=== PATIENT | female | born 1980 | race Caucasian/White ===

== ENCOUNTER 2020-05-12 11:10 | Inpatient (IN) ==
[2020-05-12] MEDS ORDERED: Acetaminophen 325 MG TABLET PO ONE (11:18)
[2020-05-12 12:04] LABS: Alanine Aminotransferase 33 Units/L (7-52); Albumin 3.4 g/dL (3.5-5.7); Alkaline Phosphatase 124 Units/L (34-104); Aspartate Amino Transferase 55 Units/L (13-39); BUN/Creatinine Ratio 16 (6-26); Bilirubin,Direct 0.1 mg/dL (0.0-0.2); Bilirubin,Indirect 0.4 mg/dL (0.0-1.0); Bilirubin,Total 0.5 mg/dL (0.3-1.0); Blood Urea Nitrogen 12 mg/dL (6-20); Calcium 8.9 mg/dL (8.6-10.3); Carbon Dioxide 26 mEq/L (23-29); Chloride 103 mEq/L (98-107); Globulin 3.4 g/dL (2.4-3.5); Glucose 88 mg/dL (70-105); Osmolality,Calculated 283 (280-300); Potassium 4.5 mEq/L (3.5-5.1); Sodium 137 mEq/L (136-145); Total Protein 6.8 g/dL (6.4-8.9); Troponin I < 0.03 ng/mL (< 0.04); eGFR For African Americans > 60 (> 60); eGFR For Non-African Americans > 60 (> 60)
[2020-05-12 12:31] LABS: Basophils % 0.3 %; Eosinophils # 0.1 K/mcL (0.0-0.6); Eosinophils % 1.2 %; Hematocrit 32.8 % (35.3-44.9); Immature Granulocytes % 0.3 % (0-4); Lymphocytes # 0.5 K/mcL (0.6-4.6); Lymphocytes % 9.1 %; Mean Corpuscular Hemoglobin 28.8 pg (28.0-33.3); Mean Corpuscular Volume 90.1 fL (83.0-100.0); Mean Platelet Volume 10.8 fL (9.4-12.4); Monocytes # 0.1 K/mcL (0.0-1.3); Monocytes % 2.1 %; Platelet Count 220 K/mcL (140-400); Red Blood Count 3.64 M/mcL (3.82-4.97); Red Cell Distribution Width 15.7 % (11.5-14.5)
[2020-05-12 12:37] LABS: Hemoglobin 10.5 g/dL (11.5-15.4); Neutrophils # 5.1 K/mcL (1.6-8.9); White Blood Count 5.8 K/mcL (4.3-11.1)
[2020-05-12 13:21] LABS: Adenovirus Not Detected (Not Detect); Bordetella Pertussis Not Detected (Not Detect); Chlamydophila pneumoniae Not Detected (Not Detect); Coronavirus 229E Not Detected (Not Detect); Coronavirus HKU1 Not Detected (Not Detect); Coronavirus NL63 Not Detected (Not Detect); Coronavirus OC43 Not Detected (Not Detect); Human Metapneumovirus Not Detected (Not Detect); Human Rhinovirus/Enterovirus Not Detected (Not Detect); Influenza A Subtype 2009 H1 Not Detected (Not Detect); Influenza B Not Detected (Not Detect); Mycoplasma pneumoniae Not Detected (Not Detect); Parainfluenza Virus 1 Not Detected (Not Detect); Parainfluenza Virus 2 Not Detected (Not Detect); Parainfluenza Virus 3 Not Detected (Not Detect); Parainfluenza Virus 4 Not Detected (Not Detect); Respiratory Syncytial Virus Not Detected (Not Detect)
[2020-05-12 13:32] LABS: Bilirubin,Urine Negative (Negative); Blood,Urine Moderate (Negative); Clarity,Urine Clear (Clear); Color,Urine Light-Yellow (Yellow); Glucose,Urine (UA) Normal (Normal); Ketones,Urine Negative (Negative); Leukocyte Esterase,Urine Negative (Negative); Mucus,Urine Few per lpf (None-Few); Nitrite,Urine Negative (Negative); Protein,Urine Negative (Neg-Trace); RBC,Urine 30-50 per hpf (0-3); Squamous Epithelial Cell,Urine Few per hpf (None-Few); Urobilinogen,Urine Normal (Normal); WBC,Urine 0-3 per hpf (0-3)
[2020-05-12] MEDS ORDERED: Vancomycin 1,500 MG/265 ML IV.SOLN IVPB ONE (13:42)
[2020-05-12] MEDS ORDERED: 0.9 % Sodium Chloride 1,000 ML IVC ONE (13:43)
[2020-05-12] MEDS ORDERED: *HR* Promethazine 25 MG/ML VIAL IVP PRN (14:31)
[2020-05-12] MEDS ORDERED: Naloxone 0.4 MG/ML INJ IVP PRN (14:31)
[2020-05-12] MEDS ORDERED: Acetaminophen 325 MG TABLET PO PRN ×2 (14:41→14:43)
[2020-05-12] MEDS ORDERED: Perflutren Lipid Microsphere 1.3 ML in 0.9 % Sodium Chloride 8.7 ML IVP PRN (14:42)
[2020-05-12] MEDS ORDERED: Vancomycin 1,500 MG/265 ML IV.SOLN IVPB SCH (15:00)
[2020-05-12] MEDS: tiZANidine 4 MG TABLET PO SCH ×2 (17:34→19:58)
[2020-05-12] MEDS: Gabapentin 300 MG CAPSULE PO SCH ×2 (17:35→20:00)
[2020-05-12] MEDS: 0.9 % Sodium Chloride 1,000 ML IVC SCH (17:35)
[2020-05-12] MEDS: Methadone Oral Concentrate 50 MG/5 ML UDC PO SCH (19:58)
[2020-05-12] MEDS: Ibuprofen 600 MG TABLET PO SCH (19:58)
[2020-05-12] MEDS: traZODone 50 MG TABLET PO SCH (20:00)
[2020-05-12] MEDS: Lactobacillus 1 EACH CAP.SPRINK PO SCH (20:00)
[2020-05-13] MEDS: Vancomycin 1,250 MG/262.5 ML IV.SOLN IVPB SCH ×4 (01:45→23:00)
[2020-05-13] MEDS: 0.9 % Sodium Chloride 1,000 ML IVC SCH (01:59)
[2020-05-13 04:19] LABS: Basophils % 0.4 %; Eosinophils # 0.2 K/mcL (0.0-0.6); Hematocrit 28.5 % (35.3-44.9); Immature Granulocytes % 0.5 % (0-4); Lymphocytes # 1.7 K/mcL (0.6-4.6); Lymphocytes % 17.1 %; Mean Corpuscular HGB Conc 30.9 g/dL (31.6-35.5); Mean Corpuscular Hemoglobin 28.7 pg (28.0-33.3); Mean Corpuscular Volume 92.8 fL (83.0-100.0); Mean Platelet Volume 11.3 fL (9.4-12.4); Monocytes # 0.6 K/mcL (0.0-1.3); Monocytes % 5.7 %; Platelet Count 161 K/mcL (140-400); Red Blood Count 3.07 M/mcL (3.82-4.97); Red Cell Distribution Width 16.1 % (11.5-14.5); Segmented Neutrophils % 74.3 %
[2020-05-13 04:22] LABS: Neutrophils # 7.4 K/mcL (1.6-8.9); White Blood Count 9.9 K/mcL (4.3-11.1)
[2020-05-13 04:23] LABS: Hemoglobin 8.8 g/dL (11.5-15.4)
[2020-05-13 04:36] LABS: BUN/Creatinine Ratio 22 (6-26); Blood Urea Nitrogen 18 mg/dL (6-20); Carbon Dioxide 24 mEq/L (23-29); Chloride 109 mEq/L (98-107); Glucose 112 mg/dL (70-105); Osmolality,Calculated 287 (280-300); Potassium 4.2 mEq/L (3.5-5.1); Sodium 137 mEq/L (136-145); eGFR For African Americans > 60 (> 60); eGFR For Non-African Americans > 60 (> 60)
[2020-05-13] MEDS: Methadone Oral Concentrate 50 MG/5 ML UDC PO SCH ×2 (08:01→20:04)
[2020-05-13] MEDS: Lactobacillus 1 EACH CAP.SPRINK PO SCH ×2 (08:02→20:03)
[2020-05-13] MEDS: Gabapentin 300 MG CAPSULE PO SCH ×3 (08:02→20:04)
[2020-05-13] MEDS: tiZANidine 4 MG TABLET PO SCH ×3 (08:02→20:04)
[2020-05-13 09:27] LABS: Albumin/Globulin Ratio 1.2 (1.1-2.2); Bilirubin,Direct 0.2 mg/dL (0.0-0.2); Bilirubin,Indirect 0.3 mg/dL (0.0-1.0); Bilirubin,Total 0.5 mg/dL (0.3-1.0); Globulin 2.6 g/dL (2.4-3.5); Total Protein 5.6 g/dL (6.4-8.9)
[2020-05-13 09:39] LABS: Fibrinogen 261 mg/dL (169-393)
[2020-05-13 09:45] LABS: D-Dimer 1193 ng/mLFEU (0-500)
[2020-05-13 10:24] LABS: Enterococcus by PCR Not Detected (Not Detect); mecA Methicillin-Resist Gene Not Detected (Not Detect)
[2020-05-13 10:25] LABS: Acinetobacter baumannii by PCR Not Detected (Not Detect); Candida albicans by PCR Not Detected (Not Detect); Candida glabrata by PCR Not Detected (Not Detect); Candida krusei by PCR Not Detected (Not Detect); Candida parapsilosis by PCR Not Detected (Not Detect); Candida tropicalis by PCR Not Detected (Not Detect); Enterobacter cloacae Cmplx PCR Not Detected (Not Detect); Enterobacteriaceae by PCR Not Detected (Not Detect); Escherichia coli by PCR Not Detected (Not Detect); Klebsiella oxytoca by PCR Not Detected (Not Detect); Klebsiella pneumoniae by PCR Not Detected (Not Detect); Proteus by PCR Not Detected (Not Detect); Pseudomonas aeruginosa by PCR Not Detected (Not Detect); Serratia marcescens by PCR Not Detected (Not Detect); Staphylococcus aureus by PCR DETECTED (Not Detect); Streptococcus agalactiae(B)PCR Not Detected (Not Detect); Streptococcus by PCR Not Detected (Not Detect); Streptococcus pneumoniae PCR Not Detected (Not Detect); Streptococcus pyogenes (A) PCR Not Detected (Not Detect)
[2020-05-13] MEDS: Ibuprofen 600 MG TABLET PO SCH (20:04)
[2020-05-13] MEDS: traZODone 50 MG TABLET PO SCH (20:04)
[2020-05-14 06:00] LABS: Basophils # 0.1 K/mcL (0.0-0.2); Basophils % 0.8 %; Eosinophils # 0.2 K/mcL (0.0-0.6); Eosinophils % 2.4 %; Hematocrit 30.9 % (35.3-44.9); Hemoglobin 9.4 g/dL (11.5-15.4); Immature Granulocytes % 0.5 % (0-4); Lymphocytes # 1.6 K/mcL (0.6-4.6); Lymphocytes % 25.3 %; Mean Corpuscular HGB Conc 30.4 g/dL (31.6-35.5); Mean Corpuscular Hemoglobin 28.4 pg (28.0-33.3); Mean Corpuscular Volume 93.4 fL (83.0-100.0); Mean Platelet Volume 11.1 fL (9.4-12.4); Monocytes # 0.4 K/mcL (0.0-1.3); Monocytes % 6.6 %; Platelet Count 135 K/mcL (140-400); Red Blood Count 3.31 M/mcL (3.82-4.97); Red Cell Distribution Width 15.6 % (11.5-14.5); Segmented Neutrophils % 64.4 %; White Blood Count 6.2 K/mcL (4.3-11.1)
[2020-05-14 06:18] LABS: BUN/Creatinine Ratio 19 (6-26); Blood Urea Nitrogen 13 mg/dL (6-20); Calcium 8.7 mg/dL (8.6-10.3); Carbon Dioxide 22 mEq/L (23-29); Chloride 109 mEq/L (98-107); Glucose 86 mg/dL (70-105); Osmolality,Calculated 287 (280-300); Potassium 4.1 mEq/L (3.5-5.1); Sodium 139 mEq/L (136-145); eGFR For African Americans > 60 (> 60); eGFR For Non-African Americans > 60 (> 60)
[2020-05-14] MEDS: Vancomycin 1,250 MG/262.5 ML IV.SOLN IVPB SCH (06:25)
[2020-05-14] MEDS: tiZANidine 4 MG TABLET PO SCH ×3 (08:25→20:35)
[2020-05-14] MEDS ORDERED: *HR* Heparin 5,000 UNIT/ML VIAL ONE (08:25)
[2020-05-14] MEDS: *HR* Heparin 5,000 UNIT/ML VIAL SQ SCH ×2 (08:25→20:35)
[2020-05-14] MEDS: Lactobacillus 1 EACH CAP.SPRINK PO SCH ×2 (08:26→20:34)
[2020-05-14] MEDS: Methadone Oral Concentrate 50 MG/5 ML UDC PO SCH ×2 (08:26→20:35)
[2020-05-14] MEDS: Gabapentin 300 MG CAPSULE PO SCH ×3 (08:26→20:35)
[2020-05-14] MEDS: Piperacillin/Tazobactam 3.375 GM in 0.9 % Sodium Chloride Mini Bag 100 ML IVPB SCH (16:07)
[2020-05-14] MEDS: Ibuprofen 600 MG TABLET PO SCH (20:34)
[2020-05-14] MEDS: traZODone 50 MG TABLET PO SCH (20:34)
[2020-05-15] MEDS: Piperacillin/Tazobactam 3.375 GM in 0.9 % Sodium Chloride Mini Bag 100 ML IVPB SCH ×3 (01:22→16:51)
[2020-05-15] MEDS: *HR* Heparin 5,000 UNIT/ML VIAL SQ SCH ×2 (05:30→16:53)
[2020-05-15] MEDS: Lactobacillus 1 EACH CAP.SPRINK PO SCH ×2 (08:43→20:13)
[2020-05-15] MEDS: Methadone Oral Concentrate 50 MG/5 ML UDC PO SCH ×2 (08:43→20:13)
[2020-05-15] MEDS: tiZANidine 4 MG TABLET PO SCH ×3 (08:47→20:13)
[2020-05-15] MEDS: Gabapentin 300 MG CAPSULE PO SCH ×3 (08:48→20:13)
[2020-05-15 09:18] LABS: Basophils % 0.6 %; Eosinophils # 0.2 K/mcL (0.0-0.6); Hematocrit 28.7 % (35.3-44.9); Hemoglobin 8.7 g/dL (11.5-15.4); Immature Granulocytes % 0.6 % (0-4); Lymphocytes # 1.4 K/mcL (0.6-4.6); Lymphocytes % 28.1 %; Mean Corpuscular HGB Conc 30.3 g/dL (31.6-35.5); Mean Corpuscular Volume 92.3 fL (83.0-100.0); Mean Platelet Volume 11.4 fL (9.4-12.4); Monocytes # 0.3 K/mcL (0.0-1.3); Monocytes % 6.2 %; Neutrophils # 3.1 K/mcL (1.6-8.9); Platelet Count 141 K/mcL (140-400); Red Blood Count 3.11 M/mcL (3.82-4.97); Red Cell Distribution Width 15.6 % (11.5-14.5); Segmented Neutrophils % 61.5 %
[2020-05-15 09:26] LABS: BUN/Creatinine Ratio 15 (6-26); Blood Urea Nitrogen 13 mg/dL (6-20); Calcium 8.6 mg/dL (8.6-10.3); Carbon Dioxide 27 mEq/L (23-29); Chloride 105 mEq/L (98-107); Glucose 127 mg/dL (70-105); Osmolality,Calculated 286 (280-300); Potassium 4.2 mEq/L (3.5-5.1); Sodium 137 mEq/L (136-145); eGFR For African Americans > 60 (> 60); eGFR For Non-African Americans > 60 (> 60)
[2020-05-15] MEDS: traZODone 50 MG TABLET PO SCH (20:13)
[2020-05-15] MEDS: ceFAZolin 2,000 MG in 0.9 % Sodium Chloride 100 ML IVPB SCH (23:55)
[2020-05-16 03:20] LABS: Basophils % 0.7 %; Eosinophils # 0.2 K/mcL (0.0-0.6); Eosinophils % 2.9 %; Hematocrit 32.8 % (35.3-44.9); Immature Granulocytes % 0.9 % (0-4); Lymphocytes # 1.9 K/mcL (0.6-4.6); Mean Corpuscular HGB Conc 30.5 g/dL (31.6-35.5); Mean Corpuscular Hemoglobin 27.9 pg (28.0-33.3); Mean Corpuscular Volume 91.6 fL (83.0-100.0); Mean Platelet Volume 11.7 fL (9.4-12.4); Monocytes # 0.4 K/mcL (0.0-1.3); Neutrophils # 3.3 K/mcL (1.6-8.9); Platelet Count 171 K/mcL (140-400); Red Blood Count 3.58 M/mcL (3.82-4.97); Red Cell Distribution Width 15.3 % (11.5-14.5); Segmented Neutrophils % 56.5 %; White Blood Count 5.9 K/mcL (4.3-11.1)
[2020-05-16 03:35] LABS: BUN/Creatinine Ratio 15 (6-26); Blood Urea Nitrogen 15 mg/dL (6-20); Carbon Dioxide 28 mEq/L (23-29); Chloride 104 mEq/L (98-107); Glucose 86 mg/dL (70-105); Osmolality,Calculated 284 (280-300); Potassium 4.5 mEq/L (3.5-5.1); Sodium 137 mEq/L (136-145); eGFR For African Americans > 60 (> 60); eGFR For Non-African Americans > 60 (> 60)
[2020-05-16] MEDS: *HR* Heparin 5,000 UNIT/ML VIAL SQ SCH ×2 (05:21→16:42)
[2020-05-16] MEDS: Gabapentin 300 MG CAPSULE PO SCH ×3 (09:04→19:50)
[2020-05-16] MEDS: Lactobacillus 1 EACH CAP.SPRINK PO SCH ×2 (09:04→19:50)
[2020-05-16] MEDS: tiZANidine 4 MG TABLET PO SCH ×3 (09:04→19:50)
[2020-05-16] MEDS: Methadone Oral Concentrate 50 MG/5 ML UDC PO SCH ×2 (09:05→19:49)
[2020-05-16] MEDS: ceFAZolin 2,000 MG in 0.9 % Sodium Chloride 100 ML IVPB SCH ×2 (12:29→19:56)
[2020-05-16] MEDS: traZODone 50 MG TABLET PO SCH (19:51)
[2020-05-17 02:01] LABS: Basophils # 0.1 K/mcL (0.0-0.2); Basophils % 0.9 %; Eosinophils # 0.2 K/mcL (0.0-0.6); Eosinophils % 2.6 %; Hematocrit 33.9 % (35.3-44.9); Hemoglobin 10.7 g/dL (11.5-15.4); Lymphocytes # 1.7 K/mcL (0.6-4.6); Lymphocytes % 29.3 %; Mean Corpuscular HGB Conc 31.6 g/dL (31.6-35.5); Mean Corpuscular Hemoglobin 28.8 pg (28.0-33.3); Mean Corpuscular Volume 91.4 fL (83.0-100.0); Mean Platelet Volume 11.4 fL (9.4-12.4); Monocytes # 0.4 K/mcL (0.0-1.3); Monocytes % 6.3 %; Neutrophils # 3.5 K/mcL (1.6-8.9); Platelet Count 173 K/mcL (140-400); Red Blood Count 3.71 M/mcL (3.82-4.97); Red Cell Distribution Width 15.4 % (11.5-14.5); Segmented Neutrophils % 59.9 %; White Blood Count 5.8 K/mcL (4.3-11.1)
[2020-05-17 02:21] LABS: BUN/Creatinine Ratio 16 (6-26); Blood Urea Nitrogen 15 mg/dL (6-20); Calcium 9.2 mg/dL (8.6-10.3); Carbon Dioxide 27 mEq/L (23-29); Chloride 102 mEq/L (98-107); Glucose 91 mg/dL (70-105); Osmolality,Calculated 282 (280-300); Potassium 4.1 mEq/L (3.5-5.1); Sodium 136 mEq/L (136-145); eGFR For African Americans > 60 (> 60); eGFR For Non-African Americans > 60 (> 60)
[2020-05-17] MEDS: ceFAZolin 2,000 MG in 0.9 % Sodium Chloride 100 ML IVPB SCH ×3 (05:43→21:03)
[2020-05-17] MEDS: *HR* Enoxaparin 40 MG/0.4 ML SYRINGE SQ SCH (05:44)
[2020-05-17] MEDS: Gabapentin 300 MG CAPSULE PO SCH ×3 (09:55→21:02)
[2020-05-17] MEDS: tiZANidine 4 MG TABLET PO SCH ×3 (09:55→21:02)
[2020-05-17] MEDS: Lactobacillus 1 EACH CAP.SPRINK PO SCH ×2 (09:55→21:01)
[2020-05-17] MEDS: Methadone Oral Concentrate 50 MG/5 ML UDC PO SCH ×2 (09:56→21:01)
[2020-05-17] MEDS: traZODone 50 MG TABLET PO SCH (21:01)
[2020-05-18 01:19] LABS: Basophils % 0.6 %; Eosinophils # 0.3 K/mcL (0.0-0.6); Eosinophils % 3.6 %; Hematocrit 32.6 % (35.3-44.9); Hemoglobin 10.2 g/dL (11.5-15.4); Lymphocytes # 1.9 K/mcL (0.6-4.6); Lymphocytes % 26.8 %; Mean Corpuscular HGB Conc 31.3 g/dL (31.6-35.5); Mean Corpuscular Hemoglobin 28.1 pg (28.0-33.3); Mean Corpuscular Volume 89.8 fL (83.0-100.0); Mean Platelet Volume 11.5 fL (9.4-12.4); Monocytes # 0.5 K/mcL (0.0-1.3); Monocytes % 6.5 %; Neutrophils # 4.3 K/mcL (1.6-8.9); Platelet Count 167 K/mcL (140-400); Red Blood Count 3.63 M/mcL (3.82-4.97); Red Cell Distribution Width 15.2 % (11.5-14.5); Segmented Neutrophils % 61.5 %; White Blood Count 6.9 K/mcL (4.3-11.1)
[2020-05-18 01:32] LABS: Magnesium 1.8 mg/dL (1.6-2.6)
[2020-05-18 01:35] LABS: BUN/Creatinine Ratio 16 (6-26); Blood Urea Nitrogen 16 mg/dL (6-20); Carbon Dioxide 28 mEq/L (23-29); Chloride 105 mEq/L (98-107); Glucose 86 mg/dL (70-105); Osmolality,Calculated 286 (280-300); Potassium 4.6 mEq/L (3.5-5.1); Sodium 138 mEq/L (136-145); eGFR For African Americans > 60 (> 60); eGFR For Non-African Americans > 60 (> 60)
[2020-05-18] MEDS: ceFAZolin 2,000 MG in 0.9 % Sodium Chloride 100 ML IVPB SCH ×2 (05:44→12:52)
[2020-05-18] MEDS: *HR* Enoxaparin 40 MG/0.4 ML SYRINGE SQ SCH (05:46)
[2020-05-18] MEDS ORDERED: Methadone Oral Concentrate 50 MG/5 ML UDC PO SCH ×2 (09:00→21:00)
[2020-05-18] MEDS: tiZANidine 4 MG TABLET PO SCH ×2 (09:22→14:21)
[2020-05-18] MEDS: Gabapentin 300 MG CAPSULE PO SCH ×2 (09:22→14:21)
[2020-05-18] MEDS: Lactobacillus 1 EACH CAP.SPRINK PO SCH (09:22)
[2020-05-18] MEDS ORDERED: Lidocaine Viscous Oral Soln 15 ML SOLUTION MM PRN (10:35)
[2020-05-18] MEDS ORDERED: 0.9 % Sodium Chloride 500 ML IVC ONE (10:35)
[2020-05-18 14:46] VITALS: BP 117/62
== END 2020-05-18 16:07 | disposition short-term general hospital (02) | DRG 720 ==
LOC: EMEROOARM 11:10 → 2NENU 11:10 → SUATTDRO 14:37 → 2NENU 16:05 → SUATTDRO 05-13 14:57 → 2ANU 05-17 06:47
PROVIDERS: ADMIT Family Medicine; ATTEND Internal Medicine

== ENCOUNTER 2020-06-15 21:29 | Observation (INO) ==
[2020-06-15] MEDS ORDERED: 0.9 % Sodium Chloride 250 ML IVC ONE (21:45)
[2020-06-15] MEDS ORDERED: ceFAZolin 3,000 MG in 0.9 % Sodium Chloride 100 ML IVPB ONE (22:18)
[2020-06-15 22:42] LABS: BUN/Creatinine Ratio 11 (6-26); Blood Urea Nitrogen 8 mg/dL (6-20); Calcium 8.6 mg/dL (8.6-10.3); Carbon Dioxide 27 mEq/L (23-29); Chloride 105 mEq/L (98-107); Glucose 92 mg/dL (70-105); Osmolality,Calculated 284 (280-300); Potassium 4.2 mEq/L (3.5-5.1); Sodium 138 mEq/L (136-145); eGFR For African Americans > 60 (> 60); eGFR For Non-African Americans > 60 (> 60)
[2020-06-15] MEDS ORDERED: Naloxone 0.4 MG/ML INJ IVP PRN (22:50)
[2020-06-15 23:01] LABS: Basophils % 0.7 %; Eosinophils # 0.2 K/mcL (0.0-0.6); Eosinophils % 4.4 %; Immature Granulocytes % 0.4 % (0-4); Lymphocytes # 1.4 K/mcL (0.6-4.6); Lymphocytes % 31.3 %; Mean Corpuscular HGB Conc 29.6 g/dL (31.6-35.5); Mean Corpuscular Hemoglobin 28.2 pg (28.0-33.3); Mean Corpuscular Volume 95.1 fL (83.0-100.0); Mean Platelet Volume 11.3 fL (9.4-12.4); Monocytes # 0.4 K/mcL (0.0-1.3); Monocytes % 8.9 %; Neutrophils # 2.4 K/mcL (1.6-8.9); Platelet Count 105 K/mcL (140-400); Red Blood Count 2.84 M/mcL (3.82-4.97); Red Cell Distribution Width 16.1 % (11.5-14.5); Segmented Neutrophils % 54.3 %; White Blood Count 4.5 K/mcL (4.3-11.1)
[2020-06-16] MEDS: Gabapentin 300 MG CAPSULE PO SCH ×3 (08:19→22:02)
[2020-06-16] MEDS: tiZANidine 4 MG TABLET PO SCH ×3 (08:19→22:03)
[2020-06-16] MEDS: Lactobacillus 1 EACH CAP.SPRINK PO SCH ×2 (08:19→22:03)
[2020-06-16] MEDS: ceFAZolin 2,000 MG in 0.9 % Sodium Chloride 100 ML IVPB SCH ×2 (08:20→16:56)
[2020-06-16] MEDS ORDERED: Methadone Oral Concentrate 50 MG/5 ML UDC PO SCH (09:00)
[2020-06-16] MEDS ORDERED: Melatonin 3 MG TABLET PO PRN (14:24)
[2020-06-16] MEDS: Acetaminophen 325 MG TABLET PO SCH ×2 (15:08→22:03)
[2020-06-16] MEDS: methocarbamoL 500 MG TABLET PO SCH ×2 (15:08→22:03)
[2020-06-16] MEDS: *HR* Heparin 5,000 UNIT/ML VIAL SQ SCH ×2 (15:09→22:03)
[2020-06-16] MEDS: traZODone 50 MG TABLET PO SCH (22:03)
[2020-06-16] MEDS: Ibuprofen 600 MG TABLET PO SCH (22:03)
[2020-06-16] MEDS: *HR* Methadone 5 MG TABLET PO SCH (22:03)
[2020-06-17] MEDS: ceFAZolin 2,000 MG in 0.9 % Sodium Chloride 100 ML IVPB SCH ×4 (00:21→23:34)
[2020-06-17 03:39] LABS: Basophils % 0.8 %; Eosinophils # 0.2 K/mcL (0.0-0.6); Eosinophils % 6.3 %; Hematocrit 27.5 % (35.3-44.9); Hemoglobin 8.2 g/dL (11.5-15.4); Immature Granulocytes % 0.5 % (0-4); Lymphocytes # 1.5 K/mcL (0.6-4.6); Lymphocytes % 38.5 %; Mean Corpuscular HGB Conc 29.8 g/dL (31.6-35.5); Mean Corpuscular Hemoglobin 27.9 pg (28.0-33.3); Mean Corpuscular Volume 93.5 fL (83.0-100.0); Mean Platelet Volume 11.5 fL (9.4-12.4); Monocytes # 0.3 K/mcL (0.0-1.3); Monocytes % 8.3 %; Neutrophils # 1.8 K/mcL (1.6-8.9); Platelet Count 122 K/mcL (140-400); Red Blood Count 2.94 M/mcL (3.82-4.97); Red Cell Distribution Width 16.2 % (11.5-14.5); Segmented Neutrophils % 45.6 %; White Blood Count 3.8 K/mcL (4.3-11.1)
[2020-06-17 03:48] LABS: BUN/Creatinine Ratio 13 (6-26); Blood Urea Nitrogen 10 mg/dL (6-20); Calcium 8.4 mg/dL (8.6-10.3); Carbon Dioxide 27 mEq/L (23-29); Chloride 106 mEq/L (98-107); Glucose 89 mg/dL (70-105); Osmolality,Calculated 287 (280-300); Potassium 4.1 mEq/L (3.5-5.1); Sodium 139 mEq/L (136-145); eGFR For African Americans > 60 (> 60); eGFR For Non-African Americans > 60 (> 60)
[2020-06-17] MEDS: *HR* Heparin 5,000 UNIT/ML VIAL SQ SCH ×3 (05:57→21:20)
[2020-06-17] MEDS: Acetaminophen 325 MG TABLET PO SCH ×3 (05:57→21:19)
[2020-06-17] MEDS: *HR* Methadone 5 MG TABLET PO SCH ×3 (05:57→21:20)
[2020-06-17] MEDS: Multivit/Ca/Min/Fe/FA 1 TAB TABLET PO SCH (08:12)
[2020-06-17] MEDS: tiZANidine 4 MG TABLET PO SCH ×3 (08:12→21:19)
[2020-06-17] MEDS: methocarbamoL 500 MG TABLET PO SCH ×3 (08:12→21:19)
[2020-06-17] MEDS: Aspirin Enteric Coated 81 MG Tablet PO SCH (08:12)
[2020-06-17] MEDS: Gabapentin 300 MG CAPSULE PO SCH ×3 (08:12→21:19)
[2020-06-17] MEDS: Lactobacillus 1 EACH CAP.SPRINK PO SCH ×2 (08:12→21:19)
[2020-06-17] MEDS: traZODone 50 MG TABLET PO SCH (21:19)
[2020-06-17] MEDS: Ibuprofen 600 MG TABLET PO SCH (21:19)
[2020-06-18] MEDS: *HR* Heparin 5,000 UNIT/ML VIAL SQ SCH ×3 (06:04→22:26)
[2020-06-18] MEDS: Acetaminophen 325 MG TABLET PO SCH ×2 (06:05→15:15)
[2020-06-18] MEDS: *HR* Methadone 5 MG TABLET PO SCH ×3 (06:06→22:25)
[2020-06-18] MEDS: Gabapentin 300 MG CAPSULE PO SCH ×3 (07:41→19:53)
[2020-06-18] MEDS: Multivit/Ca/Min/Fe/FA 1 TAB TABLET PO SCH (07:41)
[2020-06-18] MEDS: Aspirin Enteric Coated 81 MG Tablet PO SCH (07:41)
[2020-06-18] MEDS: ceFAZolin 2,000 MG in 0.9 % Sodium Chloride 100 ML IVPB SCH ×2 (07:41→15:16)
[2020-06-18] MEDS: methocarbamoL 500 MG TABLET PO SCH ×3 (07:41→19:46)
[2020-06-18] MEDS: tiZANidine 4 MG TABLET PO SCH ×3 (07:41→19:53)
[2020-06-18] MEDS: Lactobacillus 1 EACH CAP.SPRINK PO SCH ×2 (07:41→19:46)
[2020-06-18] MEDS: traZODone 50 MG TABLET PO SCH (19:46)
[2020-06-18] MEDS: Ibuprofen 600 MG TABLET PO SCH (19:52)
[2020-06-19] MEDS: ceFAZolin 2,000 MG in 0.9 % Sodium Chloride 100 ML IVPB SCH ×4 (01:29→23:05)
[2020-06-19] MEDS: Acetaminophen 325 MG TABLET PO SCH ×4 (01:31→20:45)
[2020-06-19] MEDS: *HR* Heparin 5,000 UNIT/ML VIAL SQ SCH ×3 (07:04→20:44)
[2020-06-19] MEDS: *HR* Methadone 5 MG TABLET PO SCH ×3 (07:04→20:45)
[2020-06-19] MEDS: Lactobacillus 1 EACH CAP.SPRINK PO SCH ×2 (07:28→20:44)
[2020-06-19] MEDS: Aspirin Enteric Coated 81 MG Tablet PO SCH (07:28)
[2020-06-19] MEDS: tiZANidine 4 MG TABLET PO SCH ×3 (07:28→20:46)
[2020-06-19] MEDS: Gabapentin 300 MG CAPSULE PO SCH ×3 (07:28→20:45)
[2020-06-19] MEDS: Multivit/Ca/Min/Fe/FA 1 TAB TABLET PO SCH (07:28)
[2020-06-19] MEDS: methocarbamoL 500 MG TABLET PO SCH ×3 (07:29→20:45)
[2020-06-19] MEDS: Ibuprofen 600 MG TABLET PO SCH (20:45)
[2020-06-19] MEDS: traZODone 50 MG TABLET PO SCH (20:46)
[2020-06-20 00:28] LABS: Basophils % 0.7 %; Eosinophils # 0.3 K/mcL (0.0-0.6); Eosinophils % 6.6 %; Hematocrit 26.1 % (35.3-44.9); Immature Granulocytes % 0.2 % (0-4); Lymphocytes # 1.4 K/mcL (0.6-4.6); Lymphocytes % 35.1 %; Mean Corpuscular HGB Conc 30.7 g/dL (31.6-35.5); Mean Corpuscular Hemoglobin 29.2 pg (28.0-33.3); Mean Corpuscular Volume 95.3 fL (83.0-100.0); Mean Platelet Volume 11.4 fL (9.4-12.4); Monocytes # 0.3 K/mcL (0.0-1.3); Monocytes % 7.9 %; Platelet Count 118 K/mcL (140-400); Red Blood Count 2.74 M/mcL (3.82-4.97); Red Cell Distribution Width 15.6 % (11.5-14.5); Segmented Neutrophils % 49.5 %; White Blood Count 4.1 K/mcL (4.3-11.1)
[2020-06-20 00:48] LABS: BUN/Creatinine Ratio 13 (6-26); Blood Urea Nitrogen 10 mg/dL (6-20); Calcium 8.3 mg/dL (8.6-10.3); Carbon Dioxide 27 mEq/L (23-29); Chloride 107 mEq/L (98-107); Glucose 88 mg/dL (70-105); Osmolality,Calculated 284 (280-300); Potassium 4.6 mEq/L (3.5-5.1); Sodium 138 mEq/L (136-145); eGFR For African Americans > 60 (> 60); eGFR For Non-African Americans > 60 (> 60)
[2020-06-20] MEDS: Acetaminophen 325 MG TABLET PO SCH ×3 (05:13→20:56)
[2020-06-20] MEDS: *HR* Heparin 5,000 UNIT/ML VIAL SQ SCH ×3 (05:13→20:57)
[2020-06-20] MEDS: *HR* Methadone 5 MG TABLET PO SCH ×3 (05:13→20:56)
[2020-06-20] MEDS: tiZANidine 4 MG TABLET PO SCH ×3 (08:26→20:56)
[2020-06-20] MEDS: Gabapentin 300 MG CAPSULE PO SCH ×3 (08:26→20:56)
[2020-06-20] MEDS: Multivit/Ca/Min/Fe/FA 1 TAB TABLET PO SCH (08:26)
[2020-06-20] MEDS: methocarbamoL 500 MG TABLET PO SCH ×3 (08:26→20:56)
[2020-06-20] MEDS: Lactobacillus 1 EACH CAP.SPRINK PO SCH ×2 (08:26→20:56)
[2020-06-20] MEDS: Aspirin Enteric Coated 81 MG Tablet PO SCH (08:27)
[2020-06-20] MEDS: ceFAZolin 2,000 MG in 0.9 % Sodium Chloride 100 ML IVPB SCH ×3 (08:27→23:47)
[2020-06-20] MEDS: traZODone 50 MG TABLET PO SCH (20:56)
[2020-06-20] MEDS: Ibuprofen 600 MG TABLET PO SCH (20:56)
[2020-06-21] MEDS: Acetaminophen 325 MG TABLET PO SCH ×3 (05:19→21:47)
[2020-06-21] MEDS: *HR* Methadone 5 MG TABLET PO SCH ×3 (05:19→21:46)
[2020-06-21] MEDS: *HR* Heparin 5,000 UNIT/ML VIAL SQ SCH ×3 (05:19→21:47)
[2020-06-21] MEDS: methocarbamoL 500 MG TABLET PO SCH ×3 (07:38→21:47)
[2020-06-21] MEDS: tiZANidine 4 MG TABLET PO SCH ×3 (07:38→21:47)
[2020-06-21] MEDS: Aspirin Enteric Coated 81 MG Tablet PO SCH (07:38)
[2020-06-21] MEDS: Gabapentin 300 MG CAPSULE PO SCH ×3 (07:38→21:47)
[2020-06-21] MEDS: Multivit/Ca/Min/Fe/FA 1 TAB TABLET PO SCH (07:38)
[2020-06-21] MEDS: ceFAZolin 2,000 MG in 0.9 % Sodium Chloride 100 ML IVPB SCH ×3 (07:39→23:30)
[2020-06-21] MEDS: Lactobacillus 1 EACH CAP.SPRINK PO SCH ×2 (07:39→21:47)
[2020-06-21 13:01] LABS: Basophils % 0.8 %; Eosinophils # 0.2 K/mcL (0.0-0.6); Eosinophils % 4.5 %; Hematocrit 30.2 % (35.3-44.9); Immature Granulocytes % 0.2 % (0-4); Lymphocytes # 1.5 K/mcL (0.6-4.6); Lymphocytes % 28.7 %; Mean Corpuscular HGB Conc 29.8 g/dL (31.6-35.5); Mean Corpuscular Hemoglobin 28.1 pg (28.0-33.3); Mean Corpuscular Volume 94.4 fL (83.0-100.0); Mean Platelet Volume 12.3 fL (9.4-12.4); Monocytes # 0.3 K/mcL (0.0-1.3); Neutrophils # 3.1 K/mcL (1.6-8.9); Platelet Count 170 K/mcL (140-400); Red Cell Distribution Width 15.1 % (11.5-14.5); Segmented Neutrophils % 59.8 %; White Blood Count 5.1 K/mcL (4.3-11.1)
[2020-06-21 13:22] LABS: BUN/Creatinine Ratio 16 (6-26); Blood Urea Nitrogen 11 mg/dL (6-20); Calcium 8.7 mg/dL (8.6-10.3); Carbon Dioxide 26 mEq/L (23-29); Chloride 104 mEq/L (98-107); Glucose 83 mg/dL (70-105); Osmolality,Calculated 283 (280-300); Potassium 4.6 mEq/L (3.5-5.1); Sodium 137 mEq/L (136-145); eGFR For African Americans > 60 (> 60); eGFR For Non-African Americans > 60 (> 60)
[2020-06-21] MEDS: traZODone 50 MG TABLET PO SCH (21:46)
[2020-06-21] MEDS: Ibuprofen 600 MG TABLET PO SCH (21:47)
[2020-06-22] MEDS: *HR* Methadone 5 MG TABLET PO SCH ×3 (05:29→20:45)
[2020-06-22] MEDS: Acetaminophen 325 MG TABLET PO SCH ×3 (05:29→20:45)
[2020-06-22] MEDS: *HR* Heparin 5,000 UNIT/ML VIAL SQ SCH ×3 (05:30→20:45)
[2020-06-22 06:09] LABS: Basophils % 0.7 %; Eosinophils # 0.3 K/mcL (0.0-0.6); Eosinophils % 6.1 %; Hemoglobin 8.6 g/dL (11.5-15.4); Immature Granulocytes % 0.4 % (0-4); Lymphocytes # 1.4 K/mcL (0.6-4.6); Lymphocytes % 32.1 %; Mean Corpuscular HGB Conc 29.7 g/dL (31.6-35.5); Mean Corpuscular Hemoglobin 27.6 pg (28.0-33.3); Mean Corpuscular Volume 92.9 fL (83.0-100.0); Mean Platelet Volume 11.4 fL (9.4-12.4); Monocytes # 0.3 K/mcL (0.0-1.3); Monocytes % 6.3 %; Neutrophils # 2.4 K/mcL (1.6-8.9); Platelet Count 154 K/mcL (140-400); Red Blood Count 3.12 M/mcL (3.82-4.97); Red Cell Distribution Width 15.3 % (11.5-14.5); Segmented Neutrophils % 54.4 %; White Blood Count 4.5 K/mcL (4.3-11.1)
[2020-06-22 06:26] LABS: BUN/Creatinine Ratio 18 (6-26); Blood Urea Nitrogen 13 mg/dL (6-20); Calcium 8.9 mg/dL (8.6-10.3); Carbon Dioxide 26 mEq/L (23-29); Chloride 104 mEq/L (98-107); Glucose 87 mg/dL (70-105); Magnesium 1.8 mg/dL (1.6-2.6); Osmolality,Calculated 281 (280-300); Phosphorous 5.2 mg/dL (2.7-4.5); Potassium 4.2 mEq/L (3.5-5.1); Sodium 136 mEq/L (136-145); eGFR For African Americans > 60 (> 60); eGFR For Non-African Americans > 60 (> 60)
[2020-06-22] MEDS: tiZANidine 4 MG TABLET PO SCH ×3 (07:20→20:45)
[2020-06-22] MEDS: Multivit/Ca/Min/Fe/FA 1 TAB TABLET PO SCH (07:20)
[2020-06-22] MEDS: methocarbamoL 500 MG TABLET PO SCH ×3 (07:20→20:44)
[2020-06-22] MEDS: Lactobacillus 1 EACH CAP.SPRINK PO SCH ×2 (07:20→20:45)
[2020-06-22] MEDS: ceFAZolin 2,000 MG in 0.9 % Sodium Chloride 100 ML IVPB SCH ×2 (07:20→14:53)
[2020-06-22] MEDS: Aspirin Enteric Coated 81 MG Tablet PO SCH (07:20)
[2020-06-22] MEDS: Gabapentin 300 MG CAPSULE PO SCH ×3 (07:20→20:45)
[2020-06-22] MEDS ORDERED: polyethylene glycoL 3350 17 GM POWD.PACK PO PRN (08:20)
[2020-06-22] MEDS: Ibuprofen 600 MG TABLET PO SCH (20:44)
[2020-06-22] MEDS: traZODone 50 MG TABLET PO SCH (20:45)
[2020-06-23] MEDS: ceFAZolin 2,000 MG in 0.9 % Sodium Chloride 100 ML IVPB SCH ×2 (00:26→07:32)
[2020-06-23 04:07] LABS: BUN/Creatinine Ratio 18 (6-26); Blood Urea Nitrogen 17 mg/dL (6-20); Carbon Dioxide 27 mEq/L (23-29); Chloride 106 mEq/L (98-107); Glucose 90 mg/dL (70-105); Magnesium 1.8 mg/dL (1.6-2.6); Osmolality,Calculated 287 (280-300); Phosphorous 5.7 mg/dL (2.7-4.5); Potassium 4.1 mEq/L (3.5-5.1); Sodium 138 mEq/L (136-145); eGFR For African Americans > 60 (> 60); eGFR For Non-African Americans > 60 (> 60)
[2020-06-23 04:13] LABS: Basophils % 0.7 %; Eosinophils # 0.3 K/mcL (0.0-0.6); Eosinophils % 7.5 %; Hematocrit 29.5 % (35.3-44.9); Immature Granulocytes % 0.5 % (0-4); Lymphocytes # 1.6 K/mcL (0.6-4.6); Lymphocytes % 36.4 %; Mean Corpuscular HGB Conc 30.5 g/dL (31.6-35.5); Mean Corpuscular Volume 95.2 fL (83.0-100.0); Monocytes # 0.3 K/mcL (0.0-1.3); Monocytes % 6.8 %; Neutrophils # 2.1 K/mcL (1.6-8.9); Platelet Count 165 K/mcL (140-400); Segmented Neutrophils % 48.1 %; White Blood Count 4.4 K/mcL (4.3-11.1)
[2020-06-23] MEDS: *HR* Heparin 5,000 UNIT/ML VIAL SQ SCH (05:34)
[2020-06-23] MEDS: Acetaminophen 325 MG TABLET PO SCH (05:34)
[2020-06-23] MEDS: *HR* Methadone 5 MG TABLET PO SCH (05:34)
[2020-06-23 07:30] VITALS: BP 111/61
[2020-06-23] MEDS: Multivit/Ca/Min/Fe/FA 1 TAB TABLET PO SCH (07:31)
[2020-06-23] MEDS: Lactobacillus 1 EACH CAP.SPRINK PO SCH (07:31)
[2020-06-23] MEDS: Gabapentin 300 MG CAPSULE PO SCH (07:31)
[2020-06-23] MEDS: Aspirin Enteric Coated 81 MG Tablet PO SCH (07:31)
[2020-06-23] MEDS: methocarbamoL 500 MG TABLET PO SCH (07:31)
[2020-06-23] MEDS: tiZANidine 4 MG TABLET PO SCH (07:32)
== END 2020-06-23 08:33 ==
LOC: 2ANU 21:29 → EMEROOARM 21:29 → SUATTDRO 22:34 → 2ANU 22:37
PROVIDERS: ADMIT Internal Medicine; ATTEND Internal Medicine